=== PATIENT | female | born 1995 | race Caucasian/White ===

== ENCOUNTER 2018-04-18 12:49 | Emergency (ER) | payer OTHER ==
[~2018-04-18] VITALS: Ht 165.1 cm; Wt 64.0 kg
== END 2018-04-18 15:53 ==
LOC: ER 12:49
DX: J06.9 Acute upper respiratory infection, unspecified (principal); D64.89 Other specified anemias; B34.9 Viral infection, unspecified; R05 Cough